=== PATIENT | female | born 1995 ===

== ENCOUNTER 2022-01-09 18:52 | Emergency (ER) | payer SELFPAY ==
[~2022-01-09] VITALS: Ht 165.1 cm; Wt 63.6 kg
[2022-01-09 19:05] VITALS: BP 112/83
== END 2022-01-09 19:48 | disposition left against medical advice (07) ==
LOC: EMS 18:52
DX: Z76.0 Encounter for issue of repeat prescription (principal); Z53.21 Procedure and treatment not carried out due to patient leaving prior to being seen by health care provider